=== PATIENT | female | born 1955 | race Caucasian/White ===

== ENCOUNTER 2021-09-11 12:27 | Emergency (ER) | payer BC ==
[~2021-09-11] VITALS: Ht 162.6 cm; Wt 75.9 kg
[~2021-09-11 12:27] MED LIST: MINIVELL TP; PULMICORT180 MCG/Ac IH; SEREVENT IH; ULTRAM 50MG TAB50 MG PO; VENTOLIN0.09 MG IH; VITAMIN C500 MG PO; ZYRTEC 10MG10 MG PO
[2021-09-11 12:37] VITALS: BP 200/118; PULSE 90; TEMP 98
[2021-09-11] MEDS ORDERED: SINGULAIR 110 MG/TAB (13:14)
[2021-09-11] MEDS ORDERED: NORCO 325 MG-51 TAB PO ×2 (13:20→13:23)
== END 2021-09-11 14:03 | disposition home or self-care (01) ==
LOC: COL.ER 12:27
DX: S42.291A Other displaced fracture of upper end of right humerus, initial encounter for closed fracture (principal); S80.02XA Contusion of left knee, initial encounter; I10 Essential (primary) hypertension; J44.9 Chronic obstructive pulmonary disease, unspecified; I48.0 Paroxysmal atrial fibrillation; Z79.51 Long term (current) use of inhaled steroids; Z79.899 Other long term (current) drug therapy; W10.9XXA Fall (on) (from) unspecified stairs and steps, initial encounter